=== PATIENT | male | born 1960 ===

== ENCOUNTER 2020-12-26 05:03 | Observation (INO) ==
--- NOTE | 2020-12-02 12:30 | PAT Medication Instructions ---
Medication Instructions Date of Service December 02, 2020 Home Medications celecoxib 200 mg capsule 200 mg PO QAM lisinopril 10 mg tablet 10 mg PO QAM omeprazole 20 mg tablet,delayed release 20 mg PO QAM ehjrszmegtw-gcx-lacrhfewx-[id number] [Glucosamine Complex-MSM] 1 cap PO QAM [id number] [Immune Support] 1 tab PO QAM turmeric 400 mg PO QAM ASK your surgeon for instructions celecoxib 200 mg capsule 200 mg PO QAM STOP taking 2 weeks before surgery If surgery is within 2 weeks, stop taking as soon as possible. jkxboedbnvm-jfi-ozobvbpjf-vitC [Glucosamine Complex-MSM] 1 cap PO QAM [id number]-[id number] [Immune Support] 1 tab PO QAM turmeric 400 mg PO QAM DO NOT take the morning of surgery lisinopril 10 mg tablet 10 mg PO QAM Take morning of surgery With a small sip of water, OTHERWISE NOTHING TO EAT OR DRINK AFTER MIDNIGHT: omeprazole 20 mg tablet,delayed release 20 mg PO QAM Other Notes If you have any questions please call us at [phone] or [phone] or [phone] or [phone]
--- NOTE | 2020-12-04 08:23 | Anesthesiology Consultation ---
Date of Service December 04, 2020 Assessment & Plan (1) Encounter for pre-operative examination: Chart Review Chart Review: Acceptable Risk for Surgery (pending preop Covid testing results ) and Patient seen in Pre Admission Testing Per PAT appt on 12/04/20, patient denies any recent travel. No known Covid positive contacts or Covid related symptoms. Denies any known Covid infection in the past 90 days. Scheduled for preop Covid testing 12/20/20= will await results. Educated on importance of self quarantining, social distancing and wearing mask in public both for the patient and household contacts. Teaching & Discussion Pre-Anesthesia Teaching/Discussion Notes: Instructed NPO after midnight before surgery,except medications with 15 cc of water. Medication instructions provided according to the [facility] guidelines. History Surgery Operation Date: 12/26/20 11:10 Proposed Procedures p Right Total Hip Arthroplasty - Audie Matos MD Height/Weight Height: 6 ft 7 in Weight: 124.6 kg Allergies Allergy/AdvReac Type Severity Reaction Status Date / Time No Known Allergies Allergy Verified 12/02/20 11:13 Medications Home Medications Medication Instructions Recorded Confirmed Last Taken celecoxib 200 mg capsule 200 mg PO QAM 11/26/20 12/02/20 Unknown lisinopril 10 mg tablet 10 mg PO QAM 11/26/20 12/02/20 Unknown omeprazole 20 mg tablet,delayed 20 mg PO QAM 11/26/20 12/02/20 Unknown release blrkvatfdbe-bvg-cxdjtupvq-vitC 1 cap PO QAM 12/02/20 12/02/20 Unknown [Glucosamine Complex-MSM] [id number]-ond-U-krhoxjad-[id number] 1 tab PO QAM 12/02/20 12/02/20 Unknown [Immune Support] turmeric 400 mg PO QAM 12/02/20 12/02/20 Unknown Past Medical History Medical History GERD (gastroesophageal reflux disease) Well controlled and stable Hypertension Osteoarthritis Exercise / Class Metabolic Activity II 4-5 Yardwork/Stairs/Walk up hill (one flight of stairs - no chest pain or SOB ) Past Surgical History Surgical History History of colonoscopy History of tooth extraction Past Anesthesia History No Hx of Anesthesia Complications and No Family Hx of Anesthesia Complications History of PONV No Hx of PONV and No Hx of Motion Sickness Social History Smoking Status: Former smoker Do You Dip or Chew Tobacco: No Smoking End Date: DEC 2019 Hx Alcohol Use: Yes Alcohol type: beer alcohol intake frequency: a few times a week Hx Substance Use: No substance use type: does not use Review of Systems Patient denies chest pain, shortness of breath, dyspnea on exertion, cough, wheezing, palpitations. No hx of seizures, stroke, [place], apnea/snoring. No hx of blood clots or blood transfusions Physical Exam Vital Signs VITALS BP 150/85 P 80 TEMP 98.7 SP02 97% RESP 16 Constitutional no acute distress ENMT Mouth: no TMJ clicking Thyromental Distance: > or= 3.5 Finger Breadths (3.5) Mallampati Class: II Neck + limited neck extension (significant ) Respiratory normal respiratory effort; no respiratory distress Auscultation: lungs clear to auscultation bilaterally; no wheezes Cardiovascular Rate/Rhythm: regular rate and regular rhythm (occ extra beat ) Heart Sounds: no murmur Vessels: no carotid bruit Heart sounds mildly diminished throughout Musculoskeletal Spine: no pain with cervical ROM Extremities: extremities normal to inspection Psychiatric Orientation: alert Testing Laboratory Results 12/04/20 08:42 12/04/20 08:42 PT 10.3 Seconds (9.0-12.0) 12/04/20 08:42 INR 1.0 (0.9-1.1) 12/04/20 08:42 APTT 27.4 Seconds (21.0-31.0) 12/04/20 08:42 Blood Type O Positive 12/04/20 08:42 Antibody Screen NEGATIVE 12/04/20 08:42 Electrocardiogram Date: 12/04/20 SR with marked sinus arrhythmia at 67 bpm. Otherwise normal EKG per cardio. Chest X-Ray Date: 12/04/20 Findings: + NAD and + cardiomegaly (mild ) There is mild bibasilar atelectasis.
--- NOTE | 2020-12-04 09:03 | XRay Report ---
TWO VIEW CHEST CLINICAL HISTORY: Preoperative examination. FINDINGS: PA and lateral chest radiographs are obtained. No prior studies are available for compariso n at the time of dictation. The heart is mildly enlarged. The pulmonary vasculature is noncongested. There is mild bibasilar atelectasis. The lungs and pleural spaces are otherwise clear. There is no p neumothorax. The bony thorax appears intact. IMPRESSION: No active disease in the chest. ACT 112: Negative or not required by law. Electronically signed by: Tuan Crum M.D. 12/04/2020 9:02 AM
[2020-12-04 10:45] LABS: Basophils # (auto) 0.01 K/uL (0-0.2); Basophils % (auto) 0.2 %; Eosinophils # (auto) 0.08 K/uL (0-0.5); Eosinophils % (auto) 1.6 %; Hematocrit (blood only) 42.4 % (42-52); Hemoglobin 15.3 g/dL (14.0-18.0); Immature Granulocytes # (auto) 0.01 K/uL (0.00-0.02); Immature Granulocytes % (auto) 0.2 %; Lymphocytes % (auto) 40.7 %; Mean Corpuscular Hemoglobin 32.2 pg (25-34); Mean Corpuscular Hgb Conc 36.1 g/dL (32-36); Mean Corpuscular Volume 89.3 fL (80-100); Mean Platelet Volume 9.7 fL (7.4-10.4); Monocytes # (auto) 0.26 K/uL (0.11-0.59); Monocytes % (auto) 5.3 %; Neutrophils # (auto) 2.55 K/uL (1.4-6.5); Platelet Count 239 K/uL (130-400); RDW Standard Deviation 42.8 fL (36.4-46.3); Red Blood Count 4.75 M/uL (4.7-6.1); White Blood Count 4.91 K/uL (4.8-10.8)
[2020-12-04 11:02] LABS: Partial Thromboplastin Time 27.4 Seconds (21.0-31.0); Prothrombin Time 10.3 Seconds (9.0-12.0)
[2020-12-04 11:50] LABS: BUN Creatinine Ratio 29.2 (10-20); Calcium 8.9 mg/dl (8.5-10.1); Creatinine Clr Calc Pharmacy 151.1 ml/min; Est GFR (African American) 113.7; Est GFR (Non-African American) 98.1; Potassium 4.2 mmol/L (3.5-5.1)
--- NOTE | 2020-12-04 16:10 | Electrocardiogram Report ---
Test Reason : Blood Pressure : / mmHG Vent. Rate : 067 BPM Atrial Rate : 067 BPM P-R Int : 198 ms QRS Dur : 104 ms QT Int : 442 ms P-R-T Axes : 033 041 032 degrees QTc Int : 467 ms Sinus rhythm with marked sinus arrhythmia Otherwise normal ECG No previous ECGs available Confirmed by Angel Ojeda ([id number]) on 12/04/2020 4:09:55 PM Referred By: Audie Matos Confirmed By:Angel Ojeda
[2020-12-26] MEDS ORDERED: TRANEXAMIC ACID 1,000 MG **IV Pre-op IV SCH (06:00)
[2020-12-26] MEDS ORDERED: LR 15ML/HR IV SCH ×2 (06:00)
[2020-12-26] MEDS ORDERED: LR 500ML BOLUS, THEN 15ML/HR IV SCH (06:00)
[2020-12-26] MEDS ORDERED: ACETAMINOPHEN 500 MG TAB PO SCH (06:00)
[2020-12-26] MEDS ORDERED: METOCLOPRAMIDE HCL 10 MG TABLET PO SCH (06:00)
[2020-12-26] MEDS ORDERED: ceFAZolin 2000MG 2,000 MG/15 ML SYR IV SCH (06:00)
[2020-12-26] MEDS ORDERED: GABAPENTIN 600 MG DOSE PO SCH (06:00)
[2020-12-26] MEDS ORDERED: FAMOTIDINE 20 MG TAB PO SCH (06:00)
[2020-12-26] MEDS ORDERED: BUPIVACAINE 0.5 % 5 MG/1 ML PF 10ML VIAL ONE (06:26)
[2020-12-26] MEDS ORDERED: ONDANSETRON INJ 2 MG/ML 2 ML VIAL ONE (06:43)
[2020-12-26] MEDS ORDERED: MIDAZOLAM HCL 1 MG/ML 2ML VIAL ONE (06:43)
[2020-12-26] MEDS ORDERED: MoRPHine SULFATE PF 1 MG/ML 10 ML AMP/VIAL ONE (06:44)
[2020-12-26] MEDS ORDERED: fentaNYL citrate 100 MCG/2 ML VIAL ONE (06:44)
--- NOTE | 2020-12-26 06:47 | History & Physical Bridge Note ---
Date of Service December 26, 2020 History & Physical Bridge Note I have examined the patient, reviewed the History & Physical and in the interval since the performance of the History & Physical I have noted the following changes of clinical significance: no changes noted
[2020-12-26] MEDS ORDERED: BUPIVACAINE/EPINEPHRINE 0.5% MPF 1:200,000 30 ML VIAL ONE ×2 (07:11→08:09)
[2020-12-26] MEDS ORDERED: BACITRACIN INJ 50,000 UNIT VIAL ONE (07:13)
[2020-12-26] MEDS ORDERED: LACTATED RINGER'S 500 ML IV PRN (07:13)
[2020-12-26] MEDS ORDERED: NALOXONE HCL 1 MG in SODIUM CHLORIDE 0.9% 1000ML 1,000 ML IV PRN (07:13)
[2020-12-26] MEDS ORDERED: diphenhydrAMINE 50 MG/ML VIAL IV PRN (07:13)
[2020-12-26] MEDS ORDERED: MoRPHine SULFATE PF 1 MG/ML 10 ML AMP/VIAL INT SPINAL ONE (07:13)
[2020-12-26] MEDS ORDERED: ONDANSETRON INJ 2 MG/ML 2 ML VIAL IV PRN ×2 (07:13→10:28)
[2020-12-26] MEDS ORDERED: MEPERIDINE HCL 25 MG/ML CARP/VIAL IV PRN (07:13)
[2020-12-26] MEDS ORDERED: NALOXONE HCL 0.08 MG in SYRINGE 1.8 ML IV PRN (07:13)
[2020-12-26] MEDS ORDERED: ePHEDrine sulfate 50 MG/ML AMP IV PRN (07:13)
[2020-12-26] MEDS ORDERED: NALOXONE HCL 0.4 MG/1 ML VIAL/CARP IV PRN ×2 (07:13→10:28)
[2020-12-26] MEDS ORDERED: DC INTRASPINAL MORPHINE SCH (07:15)
[2020-12-26] MEDS ORDERED: NO NARCOTICS OR SEDATIVES SCH (07:15)
[2020-12-26] MEDS ORDERED: SODIUM CHLORIDE 0.9% 1000ML 1,000 ML IV SCH ×2 (07:15→10:28)
[2020-12-26] MEDS ORDERED: KETAMINE 50 MG/5 ML SYRINGE ONE (07:29)
[2020-12-26] MEDS ORDERED: LIDOCAINE HCL 2% 2 ML VIAL/AMP(20MG/ML) INFIL ONE (07:29)
[2020-12-26] MEDS ORDERED: PROPOFOL IV EMULSION 10 MG/ML 20 ML VIAL IV ONE (07:29)
[2020-12-26] MEDS ORDERED: ceFAZolin 1000MG 1,000 MG/7.5 ML SYR IV ONE (07:54)
[2020-12-26] MEDS ORDERED: ePHEDrine sulfate 50 MG/ML SYR ONE (07:56)
[2020-12-26] MEDS ORDERED: PHENYLEPHRINE 100MCG/ML 5ML SYR ONE (07:56)
--- NOTE | 2020-12-26 09:01 | Operative Report ---
Post Operative Report Pre & Post Diagnosis Operation Date: 12/26/20 07:15 Pre-Op Diagnosis: Right Hip Advanced Degenerative Joint Disease Post-Op Diagnosis: Right Hip Advanced Degenerative Joint Disease I identified the patient and participated in the time-out.: Yes Procedure Operation Date: 12/26/20 07:15 Actual Procedures p Right Total Hip Arthroplasty--Uncemented(Right) - Audie Matos MD Surgeon Audie Matos MD Fractionation Supervisor SEJAL Sanchez Estimated Blood Loss 200 Findings Consistent with Post-Op Diagnosis Operative findings were advanced right hip DJD. He had grade 4 ynts-aw-ossj disease of the femoral head and acetabulum. Moderate-sized joint effusion. Fluids 1800 cc. Specimens Right femoral head sent for pathology. Drains None. Anesthesia Type Spinal MAC Complications none Disposition Disposition: Recovery Room Indications Patient is a 60-year-old gentleman is had several year history of gradual increased right hip pain discomfort describes gotten worse over the past year. He has been through extensive conservative treatment primarily including medicines with pretty minimal relief. 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 He has quite a bit of pain by the end of the day. X-rays show advanced hip arthritis. He elected proceed with total hip arthroplasty. Description of Procedure Operative implants consist of: 1. Biomet G7 size 58 mm acetabular shell. 2. 6.5 cancellous acetabular screws 1 of 35 mm length by 20 mm length. 3. Descanso hole child support agent. 4. Highly cross-linked polyethylene liner with a 58 mm outer diameter, 36 mm inner diameter and grullon placed inferior and posterior. 5. Zheng Corail size 12 KLA femoral stem. 6. +8.5/36 mm ceramic articular ball. The patient was taken to the operating identified and placed on the operating table supine position protectors were properly padded. IV antibiotics tried by anesthesia team. Spinal anesthetic and been implemented holding area. Flores catheter was placed in sterile fashion. The patient was then placed in the left lateral decubitus position. Axillary roll was placed. A Stulberg hip positioner was used for positioning. The right hip and leg were then prepped and draped in usual sterile fashion. A posterior lateral approach to the right hip was then performed to a curvilinear incision centered over the greater trochanter. Sharp dissection was carried through subcutaneous tissue down to the IT band gluteal fascia the IT band gluteal fascia then incised longitudinally in line with skin incision. The underlying greater bursa was excised. The piriformis and external rotators and the posterior capsule were then released from the posterior aspect of the hip joint as a single layer. Great care was taken throughout the procedure protect the sciatic nerve at all times. The hip was internally rotated and dislocated. Femoral neck osteotomy cut was made with a Final Cut 1 cm above the lesser trochanter. Femoral head was removed and sent for pathology. The femur was retracted anteriorly. Attention drawn the acetabulum. The acetabular labrum was excised. The pulmonary fat was excised. Sequential reaming the acetabular was then performed again with size 51 and progressing up to 57. I did just touch the entrance with a 58 reamer. A 58 mm Biomet G7 acetabular shell was then placed in about 40 degrees lateral opening and 20 degrees of anteversion. It was fixed with two 6.5 cancellous acetabular screws. A trial liner was placed. Attention drawn the femur. The proximal femur was entered with a cookie-cutter followed by canal finder. I then broached begin the size 8 and progressing up to 12. Got excellent fit of 12. Excellent cancellous envelope. Calcar reamer was used smooth and off the calcar. Then trialed the hip. With a +5 articular ball the soft tissue tension is seen below bit lax. I did elect to place the +8.5. Seem to recreate his leg length equal. It was fully stable full external rotation and extension as well as flexion to 90 degrees and internal rotation over 50 degrees. Attention drawn to place his implants. All trial implants were removed. An apex hole child support agent was placed. Highly cross-linked polyethylene liner was placed with a grullon placed inferior and posterior. We did place a grullon due to his job requirements in order to just maximize his stability with flexion. A [place] KLA size 12 femoral stem was impacted in position. +8.5/36 mm ceramic articular ball was placed. Hip was located once again found to be stable. Attention drawn toward closing. Nupathe wounds irrigated scope soft pulsatile lavage solution. I did inject locally with 60 cc of half percent Marcaine with epinephrine. Patient did receive 1 g tranexamic acid. The posterior capsule and external rotators were then repaired through drill holes in the posterior trochanter with #2 Tycron suture. The IT band gluteal fascia then closed in 1 PDS suture in running fashion. Subcutaneous tissue was then closed with 2 layers the deep layer #1 Vicryl suture and subcutaneous tissues with 2-0 Dexon suture in a buried interrupted fashion. Skin was closed skin leann. Leg was then cleaned dried a sterile dressing composed Xeroform, 4 x 4's, ABD pad, foam tape was applied. The patient then transferred to the recovery room in stable condition. Patient tolerated the procedure well and there were no complications. Bonifacio Sanchez, my physician water quality assistant, was present for the entire procedure. His assistance was essential and required for appropriate patient positioning, prepping and draping, surgical exposure, performing the technical details of the operation, placement the implants, closure of the wound, and placement of the sterile bandage. I attest to the content of the Intraoperative Record and any orders documented therein. Any exceptions are noted below.
--- NOTE | 2020-12-26 09:38 | XRay Report ---
AP PELVIS, CROSSTABLE LATERAL RIGHT HIP History: Right total hip arthroplasty. Degenerative arthritis. Postop. FINDINGS: The patient is status post a right total hip arthroplasty. The hardware is intact. No fract ure or dislocation. Skin leann are in place. IMPRESSION: Right total hip arthroplasty. No evidence for hardware complication ACT 112: Negative or not required by law. Electronically signed by: Jim Shields M.D. 12/26/2020 9:37 AM
--- NOTE | 2020-12-26 10:26 | Anesthesiology Progress Note ---
Date of Service December 26, 2020 Anesthesia Post Procedure Vital Signs Vital Signs: Temp Pulse Pulse Resp BP Pulse Ox 12/26/20 09:50 97.2 F L 73 15 115/69 97 12/26/20 09:40 67 14 110/58 L 97 12/26/20 09:30 62 14 92/68 L 96 12/26/20 09:20 72 14 99/58 L 95 12/26/20 09:10 70 14 115/63 92 12/26/20 09:00 82 15 115/63 98 12/26/20 08:51 96.8 F L 74 16 113/60 97 12/26/20 05:20 99.1 F 90 20 178/97 H 99 Transfer of Care Handoff Completed per policy Notes Mental Status: alert / awake / arousable and participated in evaluation Patient Amnestic to Procedure: Yes Nausea / Vomiting: adequately controlled Pain: adequately controlled Airway Patency, RR, SpO2: stable & adequate BP & HR: stable & adequate Hydration State: stable & adequate Neuraxial Anesthesia: was administered and sensory block is resolving Anesthetic Complications: no major complications apparent and Pt Satisfied with anesthetic care
[2020-12-26] MEDS ORDERED: NON-FORMULARY MEDICATION (Glucosamine-Msm-Magnesium-Vitc [Glucosamine Complex-Msm] Capsule PO SCH (10:28)
[2020-12-26] MEDS ORDERED: MAGNESIUM HYDROXIDE SUSP 30 ML UDC PO PRN (10:28)
[2020-12-26] MEDS ORDERED: [UNRECOGNIZED DRUG - OTHER] PO SCH (10:28)
[2020-12-26] MEDS ORDERED: TAMSULOSIN HCL 0.4 MG CAP PO PRN (10:28)
[2020-12-26] MEDS ORDERED: METOCLOPRAMIDE HCL INJ 5 MG/ML 2 ML VIAL IV PRN (10:28)
[2020-12-26] MEDS ORDERED: ALUMINUM/MAGNESIUM SUSP 30 ML UDC PO PRN (10:28)
[2020-12-26] MEDS ORDERED: NON-FORMULARY MEDICATION (Turmeric 400 mg Capsule) PO SCH (10:28)
[2020-12-26] MEDS ORDERED: bisacodyL 10 MG SUPP PR PRN (10:28)
[2020-12-26] MEDS: MULTIVITAMIN TAB PO SCH (11:46)
[2020-12-26] MEDS: PANTOprazole 40 MG TAB PO SCH (11:46)
[2020-12-26] MEDS: lisinopril 10 MG TAB PO SCH (11:46)
[2020-12-26] MEDS: ASPIRIN 81 MG ECTAB PO SCH ×2 (11:47→20:59)
[2020-12-26] MEDS: KETOROLAC 30 MG/ML VIAL IV SCH ×3 (11:47→22:49)
[2020-12-26] MEDS: DOCUSATE SODIUM 100 MG CAP PO SCH ×2 (11:49→20:58)
[2020-12-26] MEDS: ACETAMINOPHEN 500 MG TAB PO SCH ×2 (13:59→21:00)
[2020-12-26] MEDS: ceFAZolin 2000MG 2,000 MG/15 ML SYR IV SCH ×2 (14:27→22:49)
[2020-12-26] MEDS ORDERED: TRANEXAMIC ACID / 0.7% NACL 1,000 MG/100 ML BAG IV SCH (15:00)
[2020-12-26] MEDS: Scopolamine CHECK PATCH PLACEMENT SCH (15:04)
[2020-12-26] MEDS: ASCORBIC ACID 500 MG TAB PO SCH (16:35)
[2020-12-26] MEDS ORDERED: SENNA 8.6 MG TAB PO SCH (21:00)
[2020-12-27] MEDS ORDERED: HYDROmorphone INJ 0.5 MG/0.5 ML SYR IV PRN (01:13)
[2020-12-27] MEDS ORDERED: diphenhydrAMINE Capsule 25 MG CAP PO PRN (01:13)
[2020-12-27] MEDS: Scopolamine CHECK PATCH PLACEMENT SCH ×2 (03:15→07:51)
[2020-12-27] MEDS: traMADol HCL 50 MG TABLET PO PRN ×2 (03:17→08:58)
[2020-12-27] MEDS: KETOROLAC 30 MG/ML VIAL IV SCH ×2 (05:06→09:35)
[2020-12-27] MEDS: ACETAMINOPHEN 500 MG TAB PO SCH (05:07)
[2020-12-27 05:48] LABS: Basophils # (auto) 0.01 K/uL (0-0.2); Basophils % (auto) 0.1 %; Eosinophils # (auto) 0.09 K/uL (0-0.5); Eosinophils % (auto) 1.2 %; Hematocrit (blood only) 38.8 % (42-52); Hemoglobin 13.9 g/dL (14.0-18.0); Immature Granulocytes # (auto) 0.01 K/uL (0.00-0.02); Immature Granulocytes % (auto) 0.1 %; Lymphocytes # (auto) 1.45 K/uL (1.2-3.4); Lymphocytes % (auto) 19.8 %; Mean Corpuscular Hemoglobin 32.3 pg (25-34); Mean Corpuscular Hgb Conc 35.8 g/dL (32-36); Mean Corpuscular Volume 90.2 fL (80-100); Mean Platelet Volume 8.9 fL (7.4-10.4); Monocytes # (auto) 0.67 K/uL (0.11-0.59); Monocytes % (auto) 9.2 %; Neutrophils # (auto) 5.09 K/uL (1.4-6.5); Neutrophils % (auto) 69.6 %; Platelet Count 211 K/uL (130-400); RDW Coefficient of Variation 13.1 % (11.5-14.5); RDW Standard Deviation 42.7 fL (36.4-46.3); White Blood Count 7.32 K/uL (4.8-10.8)
[2020-12-27 06:25] LABS: BUN Creatinine Ratio 29.1 (10-20); Calcium 8.5 mg/dl (8.5-10.1); Creatinine Clr Calc Pharmacy 125.9 ml/min; Est GFR (African American) 103.1; Est GFR (Non-African American) 88.9; Potassium 3.8 mmol/L (3.5-5.1)
[2020-12-27] MEDS: DOCUSATE SODIUM 100 MG CAP PO SCH (07:56)
[2020-12-27] MEDS: MULTIVITAMIN TAB PO SCH (07:56)
[2020-12-27] MEDS: ASPIRIN 81 MG ECTAB PO SCH (07:56)
[2020-12-27] MEDS: lisinopril 10 MG TAB PO SCH (07:57)
[2020-12-27] MEDS: ASCORBIC ACID 500 MG TAB PO SCH (07:57)
[2020-12-27] MEDS: PANTOprazole 40 MG TAB PO SCH (07:57)
[2020-12-27] MEDS ORDERED: dexAMETHasone 4 MG TAB PO SCH (08:00)
--- NOTE | 2020-12-27 08:24 | Progress Notes ---
DATE: 12/27/2020 SUBJECTIVE: A 60-year-old gentleman postop day 1 from right hip replacement. He is doing pretty well. A little bit more stiff this morning. No chest pain or shortness of breath. Not feeling dizzy or lightheaded. OBJECTIVE: VITAL SIGNS: Temperature 36.6. Vital signs stable. GENERAL: Shows a pleasant, middle-aged male. He is sitting up in bed, looks quite comfortable. EXTREMITIES: Examination of the right leg reveals the leg to be well aligned. Dressing is clean, dry and intact. Thigh is soft and supple. His hip is located. He is neurologically intact. LABORATORY DATA: Hemoglobin is 13.9. Hematocrit 38.8. Electrolytes are stable. ASSESSMENT: A 60-year-old gentleman postop day 1 from a right hip replacement, doing pretty well. His pain is controlled. His hip is located. He is neurologically intact. PLAN: 1. DVT prophylaxis including thigh-high TEDs, SCDs, and aspirin twice a day. 2. PT/OT. Weight bear as tolerated. Right total knee protocol. 3. Pain control, doing well with current pain regimen. 4. Disposition: Plan to discharge to home with some home health once pain is adequately controlled, mobilizing adequately and if he does okay in therapy.
--- NOTE | 2020-12-29 09:51 | Discharge Summary ---
Date of Service December 29, 2020 Discharge Data Consultations 12/27/20 08:00 Consult Case Management - Discharge Planning Routine Procedures Performed Operation Date: 12/26/20 07:15 Actual Procedures p Right Total Hip Arthroplasty--Uncemented(Right) - Audie Matos MD Hospital Course (1) Status post total hip replacement, right: This patient is a 60 year old male admitted on 12/26/20 and underwent total hip arthroplasty. He tolerated the procedure well and there were no complications. Transferred to the PACU post op and later to the orthopedic floor for further care. He was given ancef for antibiotic prophylaxis. He was also given MARCELA stockings, SCDs, and aspirin for DVT prophylaxis. Hemoglobin, hematocrit, and vital signs were monitored during his hospital stay and remained stable. Did not require any blood transfusions. There were no complications during his hospital stay. By post op day #1 the patient was tolerating a regular diet, pain was reasonably controlled with oral pain medicine, and he was participating in physical therapy. On post op day #1 the patient was discharged home and set up with home health care. He was given printed discharge instructions including prescriptions for extra strength tylenol, aspirin, and tramadol. Continue physical therapy, weight bearing as tolerated. Total hip precautions. Continue MARCELA stockings. Follow up approximately 2 weeks post op or sooner if there are problems or concerns. Coding Level of Care Code None Diagnoses Status post total hip replacement, right Z96.641
== END 2020-12-27 10:49 | disposition home health service (06) ==
LOC: ASU 05:03 → 3E 05:03